=== PATIENT | male | born 1990 ===

== ENCOUNTER 2020-11-26 21:31 | Emergency (ER) | payer MEDICAID ==
[~2020-11-26] VITALS: Ht 172.7 cm; Wt 79.5 kg
[2020-11-26 22:06] VITALS: BP 115/86
== END 2020-11-27 01:46 | disposition left against medical advice (07) ==
LOC: EMS 21:34
DX: R06.02 Shortness of breath (principal); Z53.21 Procedure and treatment not carried out due to patient leaving prior to being seen by health care provider
CPT/HCPCS: 71045; 93005